=== PATIENT | female | born 1980 | race African-American/Black ===

== ENCOUNTER 2017-12-05 22:44 | Emergency (ER) | payer OTHER ==
[~2017-12-05] VITALS: Ht 160 cm; Wt 124.3 kg
[2017-12-05 22:58] VITALS: BP 142/101
[2017-12-05] MEDS ORDERED: HYDROCODONE-AP1 EAC6 PO (23:01)
[2017-12-05] MEDS ORDERED: FLEXERIL PO (23:01)
[2017-12-05] MEDS ORDERED: IBUPROFEN 600600 M1 PO (23:01)
== END 2017-12-05 23:27 | disposition home or self-care (01) ==
LOC: ER 22:44
DX: M54.31 Sciatica, right side (principal)